=== PATIENT | male | born 1965 | race Caucasian/White ===

== ENCOUNTER 2019-07-06 20:35 | Outpatient (REF) | payer MEDICARE, SELFPAY ==
[2019-07-06 21:37] LABS: Anion Gap 10.4 mmol/L (3-11); BUN 18 mg/dL (7-18); CO2 29.6 mmol/L (21.0-32.0); CREATININE 1.18 mg/dL (0.70-1.30); Calcium 8.9 mg/dL (8.5-10.1); Calculated LDL 177 mg/dL (<100); Chloride 102 mmol/L (98-107); Cholesterol 262 mg/dL (<200); Glucose 103 mg/dL (74-106); HDL Cholesterol 59 mg/dL (40-60); Potassium 3.8 mmol/L (3.5-5.1); Sodium 142 mmol/L (136-145); Triglyceride 132 mg/dL (<150)
[2019-07-06 21:46] LABS: Mono Screening Negative (Negative)
[2019-07-06 22:00] LABS: Absolute Basophil Count 0.02 k/cumm (0.0-0.2); Absolute Eosinophil Count 0.07 k/cumm (0.0-0.7); Absolute Lymphocyte Count 1.52 k/cumm (1.2-3.4); Absolute Monocyte Count 0.31 k/cumm (0.11-0.7); Absolute Neutrophil Count 4.39 k/cumm (1.2-6.7); Basophils % 0.3; Eosinophils % 1.1; HCT 45.8 % (40.0-50.0); HGB 15.2 g/dL (13.5-17.5); Lymphocytes % 24.1; Mean Corp. HGB Concentration 33.2 g/dL (32.0-36.0); Mean Corpuscular Hemoglobin 28.7 pg (27.0-33.0); Mean Corpuscular Volume 86.6 fL (80-95); Mean Platelet Volume 11.6 fL (8.0-11.0); Monocytes % 4.9; Neutrophils % 69.6; Platelet Count 179 x1000/uL (130-400); RBC 5.29 m/cumm (4.50-6.00); RBC Distribution Width 13.7 % (11.8-14.1); White Blood Cell Count 6.31 k/cumm (4.4-10.8)
== END 2019-07-06 20:55 ==
LOC: NCHCN 20:35
PROVIDERS: PCP Nurse Practitioner Family; Visit Provider Nurse Practitioner Family
DX: R53.83 Other fatigue (principal); R73.09 Other abnormal glucose; E78.89 Other lipoprotein metabolism disorders
CPT/HCPCS: 80048; 80061; 83036; 85025; 86308

== ENCOUNTER 2019-09-28 21:42 | Outpatient (REF) | payer MEDICARE, SELFPAY ==
[2019-10-02 02:11] LABS: SARS-CoV-2 RNA Undetected (Undetected); SARS-CoV-2 Specimen Source Nasopharynx
== END 2019-09-28 22:02 ==
LOC: NCHCN 21:42
PROVIDERS: PCP Nurse Practitioner Family; Visit Provider Nurse Practitioner Family
DX: R53.83 Other fatigue (principal); R50.9 Fever, unspecified
CPT/HCPCS: U0003

== ENCOUNTER 2020-04-22 20:16 | Outpatient (REF) | payer MEDICARE, MEDICAID, SELFPAY ==
[2020-04-22 14:25] LABS: ALT 34 U/L (16-63); AST 21 U/L (15-37); Albumin 3.8 g/dL (3.4-5.0); Alkaline Phosphatase 66 U/L (46-116); Anion Gap 12.6 mmol/L (3-11); BUN 16 mg/dL (7-18); Bilirubin, Total 0.4 mg/dL (0.2-1.0); CO2 21.4 mmol/L (21.0-32.0); CREATININE 1.2 mg/dL (0.70-1.30); Calcium 8.7 mg/dL (8.5-10.1); Chloride 106 mmol/L (98-107); Glucose 149 mg/dL (74-106); Potassium 4.2 mmol/L (3.5-5.1); Sodium 140 mmol/L (136-145); Total Protein 6.8 g/dL (6.4-8.2)
== END 2020-04-22 20:17 | disposition home or self-care (01) ==
LOC: NCHCN 20:16
PROVIDERS: PCP Nurse Practitioner Family; Visit Provider Nurse Practitioner Family
DX: Z01.818 Encounter for other preprocedural examination (principal)
CPT/HCPCS: 80053; 85025

== ENCOUNTER 2020-04-24 16:12 | Outpatient (REF) | payer MEDICARE, MEDICAID, SELFPAY ==
[2020-04-24 20:50] LABS: Abs Immature Grans 0.02 10^3/uL (0.0-0.06); Absolute Basophil Count 0.08 10^3/uL (0.0-0.2); Absolute Eosinophil Count 0.12 10^3/uL (0.0-0.7); Absolute Lymphocyte Count 2.41 10^3/uL (1.2-3.4); Absolute Monocyte Count 0.46 10^3/uL (0.1-0.8); Absolute Neutrophil Count 4.81 10^3/uL (1.2-6.7); Eosinophils % 1.5; HCT 46.8 % (40.0-50.0); HGB 15.7 g/dL (13.5-17.5); Immature Grans % 0.3; Lymphocytes % 30.5; MCH 28.9 pg (27.0-33.0); MCHC 33.5 % (32.0-36.0); Monocytes % 5.8; Neutrophils % 60.9; Nucleated RBC 0 %; Platelet Count 155 10^3/uL (130-400); RBC 5.44 10^6/uL (4.36-5.78); RDW 13.1 % (11.8-14.1)
== END 2020-04-24 16:13 | disposition home or self-care (01) ==
LOC: NCHCN 16:12
PROVIDERS: PCP Nurse Practitioner Family; Visit Provider Nurse Practitioner Family
DX: Z01.818 Encounter for other preprocedural examination (principal)
CPT/HCPCS: 85025

== ENCOUNTER 2022-03-02 19:50 | Outpatient (REF) | payer MEDICARE, MEDICAID, SELFPAY ==
[2022-03-02 15:32] LABS: ALT 28 U/L (16-63); AST 24 U/L (15-37); Albumin 4.1 g/dL (3.4-5.0); Alkaline Phosphatase 80 U/L (46-116); Anion Gap 9.9 mmol/L (3-11); BUN 25 mg/dL (7-18); Bilirubin, Total 0.4 mg/dL (0.2-1.0); CO2 26.1 mmol/L (21.0-32.0); CREATININE 1.3 mg/dL (0.70-1.30); Calcium 9.2 mg/dL (8.5-10.1); Chloride 105 mmol/L (98-107); Estimated GFR 65.28 (mL/min/1.73m2); Glucose 148 mg/dL (74-106); Magnesium 2.3 mg/dL (1.8-2.4); Potassium 3.8 mmol/L (3.5-5.1); Sodium 141 mmol/L (136-145); TSH (W/Ref FT4) 3.52 uIU/mL (0.36-3.74); Total Protein 7.8 g/dL (6.4-8.2)
[2022-03-03 10:14] LABS: PSA, Screening 0.4 ng/mL (<=3.5)
[2022-03-05 17:02] LABS: Testosterone, Free 6.53 ng/dL (4.06-15.6); Testosterone, Total 215 ng/dL (240-950)
== END 2022-03-02 19:51 | disposition home or self-care (01) ==
LOC: NCHCN 19:50
PROVIDERS: PCP Nurse Practitioner Family; Visit Provider Nurse Practitioner Family
DX: R53.83 Other fatigue (principal); E78.5 Hyperlipidemia, unspecified; R73.03 Prediabetes; R68.82 Decreased libido; Z51.81 Encounter for therapeutic drug level monitoring
CPT/HCPCS: 80053; 84153; 84402; 84403; 83735; 84443

== ENCOUNTER 2022-03-18 11:25 | Outpatient (REF) | payer MEDICARE, MEDICAID, SELFPAY ==
[2022-03-18 14:35] LABS: Abs Immature Grans 0.01 10^3/uL (0.0-0.06); Absolute Basophil Count 0.08 10^3/uL (0.0-0.2); Absolute Eosinophil Count 0.09 10^3/uL (0.0-0.7); Absolute Lymphocyte Count 2.04 10^3/uL (1.2-3.4); Absolute Monocyte Count 0.45 10^3/uL (0.1-0.8); Absolute Neutrophil Count 4.54 10^3/uL (1.2-6.7); Basophils % 1.1; Eosinophils % 1.2; HCT 45.2 % (40.0-50.0); Immature Grans % 0.1; Lymphocytes % 28.3; MCH 29.1 pg (27.0-33.0); MCHC 33.2 % (32.0-36.0); MCV 88 fL (80-95); MPV 10.7 fL (8.0-11.0); Monocytes % 6.2; Neutrophils % 63.1; Platelet Count 170 10^3/uL (130-400); RBC 5.16 10^6/uL (4.36-5.78); RDW 12.9 % (11.8-14.1); RDW-SD 41.3 fL; WBC 7.21 10^3/uL (4.4-10.8)
[2022-03-18 22:36] LABS: LH 2.5 mIU/mL (1.5-9.3)
[2022-03-25 14:44] LABS: Testosterone, Free 8.96 ng/dL (4.06-15.6); Testosterone, Total 301 ng/dL (240-950)
== END 2022-03-18 11:26 | disposition home or self-care (01) ==
LOC: NCHCN 11:25
PROVIDERS: PCP Nurse Practitioner Family; Visit Provider Nurse Practitioner Family
DX: E29.1 Testicular hypofunction (principal); Z13.0 Encounter for screening for diseases of the blood and blood-forming organs and certain disorders involving the immune mechanism; R53.83 Other fatigue
CPT/HCPCS: 84402; 84403; 83001; 83002; 85025

== ENCOUNTER 2022-04-17 11:26 | Outpatient (CLI) | payer MEDICAID, SELFPAY ==
--- NOTE | 2022-04-17 | DI.RAD_ITS ---
Exam(s) XR THORACIC SPINE COMPLETE EXAM: XR THORACIC SPINE COMPLETE CLINICAL HISTORY: BACK PAIN; THORACIC REGION. TECHNIQUE: 2D digital imaging was performed of the thoracic spine. Three views were obtained. AP, swimmer's and lateral views were obtained. COMPARISON: No exams were available for comparison FINDINGS: BONES: There is no fracture or destructive lesion. The vertebral bodies and posterior elements are un remarkable. There is mild anterior wedging of the lower thoracic vertebral bodies on the lateral view . Likely chronic. DISKS:Alignment is within normal limits. Interverebral disc spaces are maintained. Endplate osteophyt es are seen at multiple levels of the thoracic spine. SOFT TISSUE: Visualized lungs are clear. IMPRESSION: Degenerative changes in the thoracic spine. DATA REPOSITORY: RADIATION DOSE DELIVERED:
--- NOTE | 2022-04-17 | DI.RAD_ITS ---
Exam(s) XR SHOULDER RT COMPLETE 2+V EXAM: XR SHOULDER RT COMPLETE 2+V CLINICAL HISTORY: SHOULDER PAIN, RIGHT SIDED. TECHNIQUE: 2D digital imaging was performed of the right shoulder. Five images were obtained. AP, Grashey, Y-view and axillary views were obtained. COMPARISON: No exams were available for comparison FINDINGS: BONES: The patient's known right 3rd through 5th rib fractures are best appreciated on the CT scan of the chest from the same day. No other fracture is identified. No bony destructive lesion is seen. JOINTS: No dislocation present. There are degenerative changes seen at the acromioclavicular joint. SOFT TISSUE: Normal. IMPRESSION: 1. Unremarkable radiographs of the right shoulder. 2. Patient has known right 3rd through 5th rib fractures. DATA REPOSITORY: RADIATION DOSE DELIVERED:
--- NOTE | 2022-04-17 | DI.RAD_ITS ---
Exam(s) XR RIBS RT W PA LAT CHEST EXAM: XR RIBS RT W PA LAT CHEST CLINICAL HISTORY: RT RIB PAIN; TRAUMA TECHNIQUE: 2D digital imaging was performed.Six images were obtained. COMPARISON: No exams were available for comparison FINDINGS: MEDIASTINUM: Normal. HEART: Normal. PULMONARY VASCULATURE: Normal. LUNGS: Clear. PLEURAL SPACE: No pleural effusion or pneumothorax. BONE:Normal. RIGHT RIBS: There are minimally displaced fractures involving the lateral aspects of the right 3rd, 4 th and 5th ribs. These are best appreciated on the CT scan of the chest from the same day. OTHER FINDINGS:Normal. IMPRESSION: 1. No acute pulmonary findings. 2. Minimally displaced fractures involving the lateral aspects of the right 3rd through 5th ribs. Th ramona are best appreciated on the CT scan of the chest from the same day. DATA REPOSITORY: RADIATION DOSE DELIVERED:
--- NOTE | 2022-04-17 | DI.RAD_ITS ---
Exam(s) XR CERVICAL SPINE COMP 4-5V EXAM: XR CERVICAL SPINE COMP 4-5V CLINICAL HISTORY: CERVICAL SPINE PAIN; RADICULOPATHY. TECHNIQUE: 2D digital imaging was performed. Five images were obtained. AP, odontoid, lateral and bi lateral oblique images were obtained. COMPARISON: No exams were available for comparison FINDINGS: The odontoid is intact. The lateral masses are well aligned. There is normal alignment of the cervi carly spine. Anterior cervical disc fusion is seen from C5 through C7. There are degenerative changes seen at C3-4 and C4-C5. No acute fracture or subluxation is present. 3 mm anterolisthesis of C7 on T 1 is noted. Multilevel neural foraminal narrowing is seen bilaterally. The cervical thoracic juncti on is well maintained. The prevertebral soft tissues are unremarkable. Lung apices are clear. IMPRESSION: Postsurgical and degenerative changes in the cervical spine. DATA REPOSITORY: RADIATION DOSE DELIVERED:
--- NOTE | 2022-04-17 12:09 | DI.VRAD_ITS ---
PROCEDURE INFORMATION: Exam: XR Spine; Cervical Exam date and time: 04/17/2022 11:44 AM Age: 56 years old Clinical indication: Symptoms: Cervial spine pain, radiculopathy TECHNIQUE: Imaging protocol: XR of the spine. Exam focused on the cervical spine. Views: 1 view. COMPARISON: No relevant prior studies available. FINDINGS: Bones/joints: The postsurgical changes from C5-C7 with anterior fixation plate and inter disc spacers. Disc space narrowing at C3-C4 and C4-C5. Disc space narrowing at C7-T1. 0.3 cm anterolisthesis at C7-T1. Multilevel facet arthropathy. Narrowing of the neural foramina at C3-C4 and C4-C5. Soft tissues: Normal. IMPRESSION: 1. Postsurgical changes of the cervical spine. 2. 0.3 cm anterolisthesis at C7-T1. 3. Narrowing of the neural foramina at C3-C4 and C4-C5. 4. Additional findings as discussed above. Dictated and Authenticated by: Rahel Dunaway MD. Ordering:TY Clifford MD
--- NOTE | 2022-04-17 12:32 | DI.VRAD_ITS ---
PROCEDURE INFORMATION: Exam: XR Right Ribs Exam date and time: 04/17/2022 11:52 AM Age: 56 years old Clinical indication: Painful respiration and other: Right rib pain, trauma TECHNIQUE: Imaging protocol: Radiologic exam of the right ribs. Views: 2 views. COMPARISON: CR XR THORACIC SPINE COMPLETE 17/04/2022 11:49 FINDINGS: Limitations: The area of clinical interest was not marked with a BB. Bones/joints: Defect in the lateral 2nd, 3rd, and 4th lateral rib with the associated pleural thickening. Lungs: Large lung volumes. Pleural space: Right apical and right lateral pleural thickening. Soft tissues: Unremarkable. IMPRESSION: Pleural thickening and associated defect involving the right 2nd, 3rd, and 4th lateral rib may represent a nondisplaced rib fractures. PROCEDURE INFORMATION: Exam: XR Chest Exam date and time: 04/17/2022 11:52 AM Age: 56 years old Clinical indication: Painful respiration and other: Right rib pain, trauma TECHNIQUE: Imaging protocol: Radiologic exam of the chest. Views: 2 views. COMPARISON: CR XR THORACIC SPINE COMPLETE 17/04/2022 11:49 FINDINGS: Lungs: Large lung volumes. Pleural spaces: Biapical pleural thickening. Pleural thickening along the lateral aspect of the upper chest associated with the rib defects. Heart/Mediastinum: Unremarkable. No cardiomegaly. Bones/joints: Postsurgical changes of the cervical spine. Multilevel degenerative changes of the thoracic spine. IMPRESSION: 1. No acute cardiopulmonary findings. 2. Right upper lateral pleural thickening with associated rib defects may represent nondisplaced rib fractures. Dictated and Authenticated by: Rahel Dunaway MD. Ordering:TY Clifford MD
--- NOTE | 2022-04-17 12:37 | DI.VRAD_ITS ---
PROCEDURE INFORMATION: Exam: XR Right Shoulder Exam date and time: 04/17/2022 11:57 AM Age: 56 years old Clinical indication: Other: Shoulder pain right shoulder TECHNIQUE: Imaging protocol: Radiologic exam of the right shoulder. Views: 2 or more views. COMPARISON: CR XR RIBS RT W PA LAT CHEST 17/04/2022 11:52 FINDINGS: Bones/joints: Mild degenerative changes of the glenohumeral joint. Prior cervical spine surgery. No fracture or dislocation. Irregularity of the 2nd and 3rd lateral rib on the current films. Mild degenerative changes of the of chromium clavicular joint. Pleural space: Pleural thickening involving the right lateral upper chest similar to prior studies. Soft tissues: Unremarkable. IMPRESSION: 1. No acute bony injury of the shoulder. If clinical symptoms persist recommend followup film in 7-10 days. 2. Possible nondisplaced right lateral 2nd through 4th rib fracture. Dictated and Authenticated by: Rahel Dunaway MD. Ordering:TY Clifford MD
--- NOTE | 2022-04-17 12:39 | DI.VRAD_ITS ---
PROCEDURE INFORMATION: Exam: XR Thoracic Spine Exam date and time: 04/17/2022 11:49 AM Age: 56 years old Clinical indication: Other: Back pain, thoracic region TECHNIQUE: Imaging protocol: Radiologic exam of the thoracic spine. Views: 3 views. COMPARISON: CR XR CERVICAL SPINE COMP 4-5V 17/04/2022 11:44 FINDINGS: Bones/joints: Postsurgical changes of the cervical spine. Anterior wedging of several lower thoracic vertebra. Limited views of the upper thoracic vertebra on the lateral view. Mild levoscoliosis of the midthoracic spine. Soft tissues: Unremarkable. IMPRESSION: Anterior wedge deformity of several lower thoracic vertebra. Dictated and Authenticated by: Rahel Dunaway MD. Ordering:TY Clifford MD
== END 2022-04-17 11:27 | disposition home or self-care (01) ==
PROVIDERS: PCP Nurse Practitioner Family; Visit Provider Physician Assistant Medical
DX: M43.13 Spondylolisthesis, cervicothoracic region (principal); S22.41XA Multiple fractures of ribs, right side, initial encounter for closed fracture; X58.XXXA Exposure to other specified factors, initial encounter; M47.812 Spondylosis without myelopathy or radiculopathy, cervical region; M47.814 Spondylosis without myelopathy or radiculopathy, thoracic region
CPT/HCPCS: 71046; 71100; 72050; 72072; 73030

== ENCOUNTER 2022-04-17 13:36 | Emergency (ER) | payer MEDICARE, MEDICAID, SELFPAY ==
[2022-04-17] VITALS (24 sets, daily range): BP systolic 117–148; BP diastolic 76–99; PULSE 72–112; RESP 16; TEMP 36.2; O2SAT 95–100
--- NOTE | 2022-04-17 14:00 | DI.CT_ITS ---
Exam(s) CT THORACIC SPINE RECONS CT CHEST WO EXAM: CT CHEST WO and CT thoracic spine recons CLINICAL HISTORY: fall, pain. TECHNIQUE: Imaging protocol: Axial computed tomography images were obtained and coronal and sagittal reformatted images were created and reviewed. COMPARISON: CT CT THORACIC SPINE RECONS from 04/17/2022 FINDINGS: Tracheobronchial tree: Patent where visualized. Pulmonary parenchyma: No consolidation or dominant measurable mass. No architectural distortion. Ther e is atelectasis in the lung bases. Mediastinum and Yvonne: No dominant adenopathy or fluid collection. The esophagus is unremarkable. Thyroid gland: Unremarkable. Pleura: No effusion or pneumothorax. Heart: The heart is not dilated. No coronary artery calcifications are seen. No pericardial effusion. Aorta: Thoracic aorta non-dilated. Upper abdomen: There is fatty infiltration of the liver. Lymph nodes: Within normal limits. Soft tissues: Mild gynecomastia. Bones:Within normal limits for the patient's age. There is anterior cervical disc fusion seen in the lower cervical and upper thoracic spine. There are acute minimally displaced fractures of the right 3rd through 5th ribs. Thoracic spine CT recons: There are degenerative changes seen in the thoracic spine. Mild chronic an terior wedging deformities are seen at T11, T12 and L1. No acute fractures or subluxations are seen in the thoracic spine. IMPRESSION: 1. Acute fractures of the right 3rd through 5th ribs laterally. 2. No acute pulmonary process. No pneumothorax or pleural effusion. 3. No acute fractures or subluxations seen in the thoracic spine. RADIATION DOSE DELIVERED: 620 mGy.cm Total DLP 620 mGy.cm Total DLP DATA REPOSITORY: All CT scans at this facility are submitted to the National Radiology Data Registry (NRDR) Dose Index Registry (DIR) with the [employer] ([employer]). RADIATION OPTIMIZATION: All CT scans at this facility use at least one of these dose optimization te chniques: automated exposure control; mA and/or kV adjustment per patient size (includes targeted exa ms where dose is matched to clinical indication); or iterative reconstruction.
--- NOTE | 2022-04-17 14:00 | DI.CT_ITS ---
Exam(s) CT CERVICAL SPINE WO EXAM: CT CERVICAL SPINE WO CLINICAL HISTORY: fall, pain. TECHNIQUE: Imaging Protocol: Axial computed tomography images with coronal and sagittal reformatted images were created and reviewed COMPARISON: No exams were available for comparison FINDINGS: Bones: No acute fracture or subluxation. Degenerative changes seen in the cervical spine. Anterior c ervical disc fusion is seen from C5 through C7. There is 3 mm of anterolisthesis of C7 on T1. Soft Tissues: Unremarkable. There is debris seen in the right external auditory canal which may repre sent cerumen. Lung Apices: Clear. IMPRESSION: No acute fracture or subluxation in the cervical spine. RADIATION DOSE DELIVERED: 534.86mGy.cm Total DLP 534.86mGy.cm Total DLP DATA REPOSITORY: All CT scans at this facility are submitted to the National Radiology Data Registry (NRDR) Dose Index Registry (DIR) with the [employer] ([employer]). RADIATION OPTIMIZATION: All CT scans at this facility use at least one of these dose optimization te chniques: automated exposure control; mA and/or kV adjustment per patient size (includes targeted exa ms where dose is matched to clinical indication); or iterative reconstruction.
[2022-04-17] MEDS: oxyCODONE 5 mg/Acetaminophen 325 mg TAB 1 TAB PO (14:05)
[2022-04-17] MEDS: LORazepam 1 MG TAB PO (14:05)
--- NOTE | 2022-04-17 15:03 | DI.VRAD_ITS ---
PROCEDURE INFORMATION: Exam: CT Chest Without Contrast; Diagnostic Exam date and time: 04/17/2022 2:19 PM Age: 56 years old Clinical indication: Abnormal findings; Abnormal radiologic exam of lung or chest; Patient HX: Pain; Trauma; Abnormal RT rib x-rays TECHNIQUE: Imaging protocol: Diagnostic computed tomography of the chest without contrast. 3D rendering (Not supervised by radiologist): MIP and/or 3D reconstructed images were created by the technologist. Radiation optimization: All CT scans at this facility use at least one of these dose optimization techniques: automated exposure control; mA and/or kV adjustment per patient size (includes targeted exams where dose is matched to clinical indication); or iterative reconstruction. COMPARISON: CR XR RIBS RT W PA LAT CHEST 17/04/2022 11:52 FINDINGS: Lungs: Mild emphysematous changes of the right upper lobe. Reticulonodular markings in the posterior costophrenic angles bilaterally. Pleural spaces: Right lateral pleural thickening. Heart: Unremarkable. No cardiomegaly. No pericardial effusion. Lymph nodes: Unremarkable. No enlarged lymph nodes. Vasculature: Unremarkable. No aortic aneurysm. Diaphragm: Hiatal hernia. Liver: Hepatic steatosis. Bones/joints: Postsurgical changes of the cervical spine. Multilevel degenerative changes of the spine. Right 3rd through 5th rib fractures. Soft tissues: Gynecomastia. IMPRESSION: 1. Right 3rd through 5th rib fractures. 2. Bilateral parenchymal scarring. 3. Hepatic steatosis. 4. Additional findings as discussed above. Dictated and Authenticated by: Rahel Dunaway MD. Ordering:NAZIA Rodriguez MD
--- NOTE | 2022-04-17 15:20 | DI.VRAD_ITS ---
PROCEDURE INFORMATION: Exam: CT Cervical Spine Without Contrast Exam date and time: 04/17/2022 2:12 PM Age: 56 years old Clinical indication: Other: Fall, pain TECHNIQUE: Imaging protocol: Computed tomography of the cervical spine without contrast. Radiation optimization: All CT scans at this facility use at least one of these dose optimization techniques: automated exposure control; mA and/or kV adjustment per patient size (includes targeted exams where dose is matched to clinical indication); or iterative reconstruction. COMPARISON: CR XR CERVICAL SPINE COMP 4-5V 17/04/2022 11:44 FINDINGS: Bones/joints: Post postsurgical changes of the cervical spine from C5-C7 with anterior fixation plate and disc spacers in place. Disc space narrowing and degenerative changes at C3-C4 and C4-C5. Bilateral narrowing of the neural foramina at C4-C5, on the right at C5-C6 and left at C6-C7. Multilevel facet arthropathy. 0.3 cm anterolisthesis at C7-T1 with facet arthropathy. No evidence for acute bony injury. Auditory system: Debris within the right ext and left external auditory canals. Lungs: Lung apices are normal. Pleural spaces: Biapical pleural thickening. Soft tissues: Unremarkable. IMPRESSION: 1. No evidence for acute bony injury. 2. Multilevel degenerative changes of the cervical spine. 0.3 cm anterolisthesis at C7-T1. 3. Postsurgical changes of the lower cervical spine. 4. Debris within the right and left external auditory canals. Dictated and Authenticated by: Rahel Dunaway MD. Ordering:NAZIA Rodriguez MD
--- NOTE | 2022-04-17 15:34 | DI.VRAD_ITS ---
PROCEDURE INFORMATION: Exam: CT Thoracic Spine Without Contrast Exam date and time: 04/17/2022 2:19 PM Age: 56 years old Clinical indication: Pain in thoracic spine; Other: Not specified TECHNIQUE: Imaging protocol: Computed tomography of the thoracic spine without contrast. Radiation optimization: All CT scans at this facility use at least one of these dose optimization techniques: automated exposure control; mA and/or kV adjustment per patient size (includes targeted exams where dose is matched to clinical indication); or iterative reconstruction. COMPARISON: CR XR THORACIC SPINE COMPLETE 17/04/2022 11:49 FINDINGS: Bones/joints: Postsurgical changes of the lower cervical spine. Decreased bone mineralization. Mild anterior wedging of T11, T12, and L1 vertebral body. Multilevel degenerative changes of the thoracic spine. Degenerative changes of the facets at L1-L2 and L2-L3 with narrowing of the neural foramina. Degenerative changes at T6-T9 with degenerative bridging osteophytes. Multilevel facet arthropathy involving the lower thoracic spine from T8 to T12 on the right. Anterior bridging osteophytes at T10-11 and T11-12. Soft tissues: Unremarkable. Esophagus: Air-fluid level in the upper esophagus. Lungs: Bibasilar reticular scarring. Other findings: Hiatal hernia. IMPRESSION: 1. Multilevel degenerative changes of the thoracic spine. 2. Additional findings as discussed above. Dictated and Authenticated by: Rahel Dunaway MD. Ordering:NAZIA Rodriguez MD
--- NOTE | 2022-04-17 15:48 | ED.GENADUL_ITS ---
Discharge Plan Disposition Patient Disposition: Home Discharge Details Clinical Impression: Multiple rib fractures Primary Care Provider: Roslyn Weir ED Provider: Jennifer Esposito Home Meds and New Rx's Prescriptions: New oxycodone 5 mg capsule 5 mg PO Q6H PRNQty: 14 0RF Continued gabapentin 400 mg Capsule 400 mg PO HS omeprazole 40 mg Capsule,Delayed Release(Dr/Ec) 40 mg PO HS venlafaxine 100 mg Tablet 250 mg PO HS Discharge Instructions Instructions: Rib Fracture (ED) Additional Instructions: Please follow-up with your PCP for recheck in 2 to 3 days Take the pain medication as supplied Take ibuprofen 600 mg every 8 hours with food You may take the oxycodone as needed for more severe discomfort, you may also take Tylenol 650 mg to 1 g every 6 hours as needed Make sure you use your spirometer, at least 10-12 times a day, take a complete inhalation and exhalation so that you do not develop pneumonia Referrals: Roslyn Weir [Primary Care Provider] - Discharge Data Discharge Date/Time-TO BE ENTERED AT DEPARTURE: 04/17/22 16:18 Medical Decision Making This 56-year-old male presents from urgent care with rib and arm pain Reviewed x-rays and ordered CT for confirmation CT thoracic, cervical spine and chest display evidence of chronic degenerative changes without any obvious acute process, patient has a nonfocal neurological exam is ambulatory with steady gait CT chest with rib fractures 2 3 through 5, no evidence of pulmonary contusion, no acute respiratory distress No obvious scapular fracture per radiology interpretation my review I did give patient the option of admission for pain control however he feels as though he will tolerate taking oral pain medication at home and tells me he does have a spirometer which she will use between 10 and 12 times a day to prevent pneumonia He is discharged home with without hypoxia, in no acute distress, symptomatically improved after some oral medication Return precautions reviewed and patient expressed understanding Medical Records Medical records reviewed: Yes I reviewed the patient's medical records. Lab Data Lab results reviewed: Yes I reviewed the patient's lab results. HPI General Date/Time Provider Initiated Documentation: 04/17/22 13:50 . HPI Narrative: This 56-year-old male presents with fall 3 days prior to arrival on ice. He had an outstretched arm. This is a mechanical fall. He states he has had persistent pain since that time. He denies any shortness of breath. He denies any fever or chills. Denies any strength or sensation change. Denies any changes to bowel or bladder or lower back pain. Denies any abdominal pain. Denies history of coagulopathy or headache. Related Data Home Medications Medication Instructions Recorded Confirmed gabapentin 400 mg capsule 400 mg PO HS 04/17/22 04/17/22 omeprazole 40 mg capsule,delayed 40 mg PO HS 04/17/22 04/17/22 release oxycodone 5 mg capsule 5 mg PO Q6H PRN #14 caps 04/17/22 venlafaxine 100 mg tablet 250 mg PO HS 04/17/22 04/17/22 Previous Rx's Medication Instructions Recorded oxycodone 5 mg capsule 5 mg PO Q6H PRN #14 caps 04/17/22 Allergies Allergy/AdvReac Type Severity Reaction Status Date / Time amoxicillin Allergy Unverified 04/17/22 13:48 General Stated Complaint: Chest/Rib MARCELA: 3 PFSH All Active Problems (Updated 04/17/22 @ 15:52 by BROWN Siegel) Multiple rib fractures (Acute) Social History Smoking/Tobacco Use Status: Never Smoking risk assessment performed?: Yes Drug use: Daily Substance use type: marijuana Do you feel safe at home: Yes Do you feel safe in your relationship?: Yes Exam Const General: cooperative, comfortable and no acute distress HENMT Head: normal to inspection Mouth: oral mucosae normal Eyes General: appearance normal, both eyes and all related structures Chest Other: Scapular and chest wall tenderness laterally, no crepitus Resp Effort & Inspection: normal respiratory effort Auscultation: clear to auscultation bilaterally Cardio Rate: regular rate Rhythm: regular rhythm Other: Distal pulses intact GI Inspection: normal to inspection Other: No CVA or abdominal tenderness Skin General skin exam: no rashes or lesions noted Neuro Cognition: normal cognition Speech: speech normal Gait: normal gait Extrem General: normal to inspection Other: Distal pulses intact Course Vital Signs Vital signs: Vital Signs Temperature 36.2 C L 04/17/22 13:43 Pulse 96 H 04/17/22 13:43 Respiratory Rate 16 04/17/22 13:43 Blood Pressure 148/85 H 04/17/22 13:43 Pulse Oximetry 98 04/17/22 13:43 Temperature 36.2 C L 04/17/22 13:43 Temperature Source Oral 04/17/22 13:43 Pulse 96 H 04/17/22 13:43 Respiratory Rate 16 04/17/22 13:43 Respiratory Effort Normal 04/17/22 14:00 Respiratory Depth Normal 04/17/22 14:00 Respiratory Pattern Normal 04/17/22 14:00 Blood Pressure 148/85 H 04/17/22 13:43 Blood Pressure Position Sitting 04/17/22 13:43 Pulse Oximetry 98 04/17/22 13:43 Oxygen Delivery Method Room Air 04/17/22 13:43 Oxygen Flow Rate 0 04/17/22 13:43 Pain Level 8 04/17/22 14:00
== END 2022-04-17 16:18 | disposition home or self-care (01) ==
PROVIDERS: Emergency Provider Physician Assistant; PCP Nurse Practitioner Family
DX: S22.41XA Multiple fractures of ribs, right side, initial encounter for closed fracture (principal); W00.0XXA Fall on same level due to ice and snow, initial encounter; M43.13 Spondylolisthesis, cervicothoracic region; M47.812 Spondylosis without myelopathy or radiculopathy, cervical region; M47.814 Spondylosis without myelopathy or radiculopathy, thoracic region
CPT/HCPCS: 71250; 99284; 71046; 71100; 72050; 72072; 72125; 73030

== ENCOUNTER 2022-04-28 18:33 | Outpatient (REF) | payer MEDICARE, MEDICAID, SELFPAY ==
[2022-04-28 22:20] LABS: Vitamin D 25 Total 31.5 ng/mL (30-100)
[2022-04-29 19:00] LABS: Parathyroid Hormone,Intact 48 pg/mL (19-88)
== END 2022-04-28 18:34 | disposition home or self-care (01) ==
LOC: NCHCN 18:33
PROVIDERS: PCP Nurse Practitioner Family; Visit Provider Internal Medicine
DX: S22.43XA Multiple fractures of ribs, bilateral, initial encounter for closed fracture (principal); S22.000A Wedge compression fracture of unspecified thoracic vertebra, initial encounter for closed fracture; X58.XXXA Exposure to other specified factors, initial encounter
CPT/HCPCS: 82306; 83970

== ENCOUNTER 2023-02-03 12:56 | Outpatient (REF) | payer MEDICARE, MEDICAID, SELFPAY ==
[2023-02-04 11:55] LABS: Campylobacter PCR Negative (Negative); Salmonella PCR Negative (Negative); Shiga Toxin PCR Negative (Negative); Shigella/Enteroinvasive Ecoli Negative (Negative)
== END 2023-02-03 12:57 | disposition home or self-care (01) ==
LOC: NCHCN 12:56
PROVIDERS: PCP Nurse Practitioner Family; Visit Provider Family Medicine
DX: K21.9 Gastro-esophageal reflux disease without esophagitis (principal)
CPT/HCPCS: 87505; 87177

== ENCOUNTER 2024-05-23 19:01 | Outpatient (REF) | payer MEDICARE, MEDICAID, SELFPAY ==
[2024-05-23 16:01] LABS: Abs Immature Grans 0.02 10^3/uL (0.0-0.06); Absolute Basophil Count 0.09 10^3/uL (0.0-0.2); Absolute Eosinophil Count 0.12 10^3/uL (0.0-0.7); Absolute Lymphocyte Count 2.64 10^3/uL (1.2-3.4); Absolute Neutrophil Count 4.23 10^3/uL (1.2-6.7); Basophils % 1.2 %; Eosinophils % 1.6 %; HCT 44.8 % (40.0-50.0); HGB 15.6 g/dL (13.5-17.5); Immature Grans % 0.3 %; Lymphocytes % 34.7 %; MCH 29.8 pg (27.0-33.0); MCHC 34.8 % (32.0-36.0); MCV 86 fL (80-95); MPV 11.1 fL (8.0-11.0); Monocytes % 6.6 %; Neutrophils % 55.6 %; Platelet Count 169 10^3/uL (130-400); RBC 5.24 10^6/uL (4.36-5.78); RDW 12.9 % (11.8-14.1)
[2024-05-23 16:33] LABS: ALT 38 U/L (16-63); AST 24 U/L (15-37); Albumin 4.1 g/dL (3.4-5.0); Alkaline Phosphatase 72 U/L (46-116); Anion Gap 11.2 mmol/L (3-11); BUN 19 mg/dL (7-18); Bilirubin, Total 0.7 mg/dL (0.2-1.0); CO2 26.8 mmol/L (21.0-32.0); CREATININE 1.1 mg/dL (0.70-1.30); Calcium 9.3 mg/dL (8.5-10.1); Calculated LDL 74 mg/dL (<100); Chloride 104 mmol/L (98-107); Cholesterol 168 mg/dL (<200); Estimated GFR 78.79 (mL/min/1.73m2); Glucose 125 mg/dL (74-106); HDL Cholesterol 75 mg/dL (>or=40); Magnesium 2.3 mg/dL; Potassium 3.6 mmol/L (3.5-5.1); Sodium 142 mmol/L (136-145); TSH 6.11 uIU/mL (0.36-3.74); Total Protein 7.7 g/dL (6.4-8.2); Triglyceride 98 mg/dL (<150); Vitamin B12 735 pg/mL (193-986); Vitamin D 25 Total 20 ng/mL (30-100)
[2024-05-23 17:04] LABS: Hemoglobin A1C 6.2 % (<5.7)
[2024-05-26 11:19] LABS: Testosterone, Total 263 ng/dL (240-950)
== END 2024-05-23 19:02 | disposition home or self-care (01) ==
LOC: NCHCN 19:01
PROVIDERS: PCP Nurse Practitioner Family; Visit Provider Family Medicine
DX: Z00.00 Encounter for general adult medical examination without abnormal findings (principal); R53.83 Other fatigue; R68.82 Decreased libido
CPT/HCPCS: 80053; 80061; 82306; 84403; 82607; 83036; 83735; 84443; 85025

== ENCOUNTER 2024-06-18 12:31 | Outpatient (REF) | payer MEDICARE, MEDICAID, SELFPAY ==
[2024-06-18 16:08] LABS: HCT 47.9 % (40.0-50.0); HGB 16.1 g/dL (13.5-17.5); MCH 29.7 pg (27.0-33.0); MCHC 33.6 % (32.0-36.0); MCV 88 fL (80-95); MPV 11.5 fL (8.0-11.0); Platelet Count 167 10^3/uL (130-400); RBC 5.42 10^6/uL (4.36-5.78); RDW-SD 42.1 fL; WBC 5.57 10^3/uL (4.4-10.8)
[2024-06-18 17:17] LABS: ALT 40 U/L (16-63); AST 24 U/L (15-37); Albumin 4.2 g/dL (3.4-5.0); Alkaline Phosphatase 68 U/L (46-116); Anion Gap 10.7 mmol/L (3-11); BUN 15 mg/dL (7-18); Bilirubin, Total 0.8 mg/dL (0.2-1.0); CO2 27.3 mmol/L (21.0-32.0); CREATININE 1.2 mg/dL (0.70-1.30); Calcium 9.3 mg/dL (8.5-10.1); Calculated LDL 83 mg/dL (<100); Chloride 104 mmol/L (98-107); Cholesterol 176 mg/dL (<200); Estimated GFR 70.98 (mL/min/1.73m2); Ferritin 204 ng/mL (26-388); Glucose 125 mg/dL (74-106); HDL Cholesterol 73 mg/dL (>or=40); Magnesium 2.4 mg/dL (1.8-2.4); Potassium 3.7 mmol/L (3.5-5.1); Sodium 142 mmol/L (136-145); TSH (W/Ref FT4) 2.94 uIU/mL (0.36-3.74); Total Protein 7.8 g/dL (6.4-8.2); Triglyceride 102 mg/dL (<150); Vitamin D 25 Total 26 ng/mL (30-100)
[2024-06-18 18:54] LABS: Lipase 35 U/L (<78)
[2024-06-20 12:40] LABS: ANA Interpretation Negative (Negative)
[2024-06-23 04:15] LABS: Testosterone, Total 305 ng/dL (240-950)
== END 2024-06-18 12:32 | disposition home or self-care (01) ==
LOC: NCHCN 12:31
PROVIDERS: PCP Nurse Practitioner Family; Visit Provider Family Medicine
DX: E78.5 Hyperlipidemia, unspecified (principal); R53.83 Other fatigue; R19.7 Diarrhea, unspecified
CPT/HCPCS: 80053; 80061; 82306; 83690; 84403; 85027; 82728; 83735; 84443; 86038

== ENCOUNTER 2024-09-25 16:40 | Outpatient (REF) | payer MEDICARE, MEDICAID, SELFPAY ==
[2024-09-26 22:15] LABS: PSA, Diagnostic 0.4 ng/mL (<=3.5)
== END 2024-09-25 16:41 | disposition home or self-care (01) ==
LOC: NCHCN 16:40
PROVIDERS: PCP Nurse Practitioner Family; Visit Provider Family Medicine
DX: N42.9 Disorder of prostate, unspecified (principal)
CPT/HCPCS: 84153

== ENCOUNTER 2025-01-10 00:56 | Outpatient (CLI) | payer MEDICARE, MEDICAID, SELFPAY ==
--- NOTE | 2025-01-10 12:54 | W.NUTRFU ---
Documented by User: Melanie Maharaj 01/10/25 13:28 Date of service: 01/10/25 Time of Service: 12:00 Nutrition Note NOTE: Met with pt in person for nutrition counseling. Pt presents with desire for nutrition guidance in managing recently dx hepatic steatosis through diet. Unsure of what stage of fatty liver he is in, but is interesting in making dietary changes to reverse it/prevent it from getting worse. PMH of prediabetes, diverticulitis hospitalization, neuropathy, anxiety. Currently takes Vit B, C, D, quercetine, leonardo. Pt reports currently have 6 BM a day, mostly formed stools, that occur because he will feel a pain in his lower abdomen prompting him to go to the bathroom. Pt says he typically has coffee with maple syrup added to it, which he estimates to be about 8 tsp a day. We spoke about how that alone can significantly contribute to his added sugar intake. Reviewed importance of consuming fruits and nonstarchy vegetables, lean protein, healthy fats like omega 3's, high fiber foods, and staying hydrated with water to treat fatty liver and to prevent complications. Spoke about the Mediterranean diet being a good dietary plan to follow as it prioritizes plant-based proteins, whole grains, fruits and vegetables, healthy fats, etc. Anti-inflammatory spices and herbs like paprika and cinnamon may be helpful. Recommended adding whey protein/collagen powder to diet to boost protein intake. Recommended based on pt's ht and wt that he should consume 2,500 kcal/day, 100 g protein, less than 40 g added sugars and at least 35 g fiber. Will send pt a sample menu based off these calculations as well as additional resources for hepatic steatosis. Recommended to pt a milk thistle supplement, which may help prevent liver scarring, and fish oil, but to check with pcp first since pt is on a variety of supplements. Pt is aware he can contact the dietitian if he has any questions or would like a follow-up appointment. Time Spent in Nutritional Counseling and Treatment: 45 mins Documented by User: Golden Lopez RDN 01/10/25 14:30 Nutrition Note NOTE: Met with pt in person for nutrition counseling. Pt presents with desire for nutrition guidance in managing recently dx hepatic steatosis through diet. Unsure of what stage of fatty liver he is in, but is interesting in making dietary changes to reverse it/prevent it from getting worse. PMH of prediabetes, diverticulitis hospitalization, neuropathy, anxiety. Currently takes Vit B, C, D, quercetine, leonardo. Pt reports currently have 6 BM a day, mostly formed stools, that occur because he will feel a pain in his lower abdomen prompting him to go to the bathroom. Pt says he typically has coffee with maple syrup added to it, which he estimates to be about 8 tsp a day. We spoke about how that alone can significantly contribute to his added sugar intake. Reviewed importance of consuming fruits and nonstarchy vegetables, lean protein, healthy fats like omega 3's, high fiber foods, and staying hydrated with water to treat fatty liver and to prevent complications. Stan doesn't eat breakfast most days and we discussed the importance of regular meals so protein/fiber can be distributed more evenly and help give him the opportunity to meet goals for protein and fiber. Spoke about the Mediterranean diet being a good dietary plan to follow as it prioritizes plant-based proteins, whole grains, fruits and vegetables, healthy fats, etc. Anti-inflammatory spices and herbs like paprika and cinnamon may be helpful. Recommended adding whey protein/collagen powder to diet to boost protein intake. Recommended based on pt's ht and wt that he should consume 2,500 kcal/day, 100 g protein, less than 40 g added sugars and at least 35 g fiber. Will send pt a sample menu based off these calculations as well as additional resources for hepatic steatosis. Recommended to pt a milk thistle supplement, which may help prevent liver scarring, and fish oil, but to check with pcp first since pt is on a variety of supplements. Pt is aware he can contact the dietitian if he has any questions or would like a follow-up appointment.
== END 2025-01-10 00:57 | disposition home or self-care (01) ==
LOC: DS 00:57
PROVIDERS: PCP Nurse Practitioner Family; Visit Provider Dietitian, Registered
DX: Z71.3 Dietary counseling and surveillance (principal); K76.0 Fatty (change of) liver, not elsewhere classified
CPT/HCPCS: 00123; 97802